=== PATIENT | male | born 1965 | race American Indian/Alaskan Native ===

== ENCOUNTER 2018-07-16 12:45 | Emergency (ER) | payer SELFPAY ==
[2018-07-16 13:11] VITALS: BP 180/102
--- NOTE | 2018-07-16 16:07 | XRay Report ---
FINAL REPORT EXAM: XR ANKLE 3+V RT HISTORY: right ankle pain and injury TECHNIQUE: Three views right ankle Comparison: None FINDINGS: Mild diffuse osteopenia. Significant soft tissue swelling projects over the lateral malleolus. Mortise is preserved. There is an ill-defined lucency projecting over the medial talar dome on the AP image. There is an ill-defined lucency projecting over the posterior malleolus. There is an old well corticated 3 millimeter bone chip along the medial inferior aspect of the lateral malleolus. Ankle joint effusion is present. IMPRESSION: Findings suspicious for posterior malleolar fracture and medial talar dome/plafond injury. Mechanism injury is also suggestive of a nondisplaced lateral malleolus fracture. Recommend CT for further characterization.
== END 2018-07-16 18:10 ==
LOC: ED 12:45
DX: M25.571 Pain in right ankle and joints of right foot (principal); R03.0 Elevated blood-pressure reading, without diagnosis of hypertension; Z53.21 Procedure and treatment not carried out due to patient leaving prior to being seen by health care provider

== ENCOUNTER 2018-12-12 10:08 | Emergency (ER) | payer SELFPAY ==
[2018-12-12 12:40] LABS: Hematocrit 41.7 % (35.5-45.6); Hemoglobin 13.9 gm/dl (11.8-15.2); Mean Corpuscular HGB Conc 33 % (32-34); Mean Corpuscular Volume 93 fl (84-94); Platelet Count 225 K/mm3 (140-440); Red Blood Count 4.51 M/mm3 (3.65-5.03); Red Cell Distribution Width 15.6 % (13.2-15.2)
[2018-12-12 12:53] LABS: Alanine Aminotransferase 24 units/L (7-56); Albumin 4.2 g/dL (3.9-5); BUN/Creatinine Ratio 13; Blood Urea Nitrogen 15 mg/dL (9-20); Calcium 8.9 mg/dL (8.4-10.2); Hemolysis Index 8
--- NOTE | 2018-12-12 12:57 | Emergency Department Report ---
ED General Adult HPI - General Chief complaint: High BP Stated complaint: HIGH BP Time Seen by Provider: 12/12/18 12:14 Source: patient Mode of arrival: Ambulatory Limitations: No Limitations - History of Present Illness Initial comments: This is a 53-year-old -F[place] male presents with dizziness and headache that has increased today. Patient states he has been off blood pressure medication for the past 2 months. He recently moved back to [place] from [place] 45 days ago and has not been able to get Medicaid switched here. He is requesting refills of blood pressure medication. He denies chest pain, shortness of breath, visual changes, numbness or tingling, nausea or vomiting, or radiating pain. Onset/Timin -: month(s) Radiation: non-radiation Improves with: none Worsens with: none Associated Symptoms: headaches. denies: confusion, chest pain, cough, diaphoresis, fever/chills, loss of appetite, malaise, nausea/vomiting, rash, seizure, shortness of breath, syncope, weakness Treatments Prior to Arrival: none - Related Data Previous Rx's Medication Instructions Recorded Last Taken Type Aspirin EC [Aspirin Enteric Coated 81 mg PO QDAY #30 tablet. 10/22/18 Unknown Rx TAB] Carvedilol [Coreg] 6.25 mg PO BID #60 tablet 10/22/18 Unknown Rx ISOSORBIDE MONOnitrate [Imdur ER] 30 mg PO DAILY #30 tab.er.24h 12/04/18 Unknown Rx Lisinopril [Zestril TAB] 20 mg PO QDAY #30 tablet 12/04/18 Unknown Rx Carvedilol [Coreg] 6.25 mg PO BID #60 tablet 12/12/18 Unknown Rx ISOSORBIDE MONOnitrate [Imdur ER] 30 mg PO QDAY #30 tablet 12/12/18 Unknown Rx Lisinopril [Zestril TAB] 20 mg PO QDAY #30 tablet 12/12/18 Unknown Rx Allergies Allergy/AdvReac Type Severity Reaction Status Date / Time No Known Allergies Allergy Verified 12/04/18 09:47 ED Review of Systems ROS: Stated complaint: HIGH BP Other details as noted in HPI Constitutional: denies: chills, fever Respiratory: denies: cough, shortness of breath, wheezing Cardiovascular: denies: chest pain, palpitations Gastrointestinal: denies: abdominal pain, nausea, diarrhea Neurological: headache, vertigo. denies: weakness, paresthesias Psychiatric: denies: anxiety, depression ED Past Medical Hx - Past Medical History Hx Hypertension: Yes Hx CVA: Yes Hx Heart Attack/AMI: No Hx Congestive Heart Failure: No Hx Diabetes: No Hx Deep Vein Thrombosis: No Hx Asthma: No Hx COPD: No Additional medical history: right ankle fx. - Surgical History Hx Coronary Stent: No Hx Pacemaker: No Hx Internal Defibrillator: No - Social History Smoking Status: Never Smoker Substance Use Type: None - Medications Home Medications: Home Medications Medication Instructions Recorded Confirmed Last Taken Type Aspirin EC [Aspirin Enteric Coated 81 mg PO QDAY #30 tablet.dr 10/22/18 Unknown Rx TAB] Carvedilol [Coreg] 6.25 mg PO BID #60 tablet 10/22/18 Unknown Rx ISOSORBIDE MONOnitrate [Imdur ER] 30 mg PO DAILY #30 tab.er.24h 12/04/18 Unknown Rx Lisinopril [Zestril TAB] 20 mg PO QDAY #30 tablet 12/04/18 Unknown Rx Carvedilol [Coreg] 6.25 mg PO BID #60 tablet 12/12/18 Unknown Rx ISOSORBIDE MONOnitrate [Imdur ER] 30 mg PO QDAY #30 tablet 12/12/18 Unknown Rx Lisinopril [Zestril TAB] 20 mg PO QDAY #30 tablet 12/12/18 Unknown Rx ED Physical Exam - General Limitations: No Limitations General appearance: alert, in no apparent distress - ENT ENT exam: Present: mucous membranes moist - Respiratory Respiratory exam: Present: normal lung sounds bilaterally. Absent: respiratory distress - Cardiovascular Cardiovascular Exam: Present: regular rate, normal rhythm. Absent: systolic murmur, diastolic murmur, rubs, gallop - GI/Abdominal GI/Abdominal exam: Present: soft, normal bowel sounds - Neurological Exam Neurological exam: Present: alert, oriented X3, normal gait - Psychiatric Psychiatric exam: Present: normal affect, normal mood - Skin Skin exam: Present: warm, dry, intact, normal color. Absent: rash ED Course Vital Signs 12/12/18 12/12/18 12/12/18 10:12 14:10 14:11 Temperature 98.5 F Pulse Rate 96 H 84 84 Respiratory 18 Rate Blood Pressure 192/114 170/104 170/104 O2 Sat by Pulse 98 Oximetry ED Medical Decision Making - Lab Data Result diagrams: 12/12/18 12:27 12/12/18 12:27 Lab Results 12/12/18 12/12/18 Range/Units 12:27 12:27 WBC 7.1 (4.5-11.0) K/mm3 RBC 4.51 (3.65-5.03) M/mm3 Hgb 13.9 (11.8-15.2) gm/dl Hct 41.7 (35.5-45.6) % MCV 93 (84-94) fl MCH 31 (28-32) pg MCHC 33 (32-34) % RDW 15.6 H (13.2-15.2) % Plt Count 225 (140-440) K/mm3 Sodium 144 (137-145) mmol/L Potassium 3.2 L (3.6-5.0) mmol/L Chloride 104.7 (98-107) mmol/L Carbon Dioxide 25 (22-30) mmol/L Anion Gap 18 mmol/L BUN 15 (9-20) mg/dL Creatinine 1.2 (0.8-1.5) mg/dL Estimated GFR > 60 ml/min BUN/Creatinine Ratio 13 % Glucose 80 (75-100) mg/dL Calcium 8.9 (8.4-10.2) mg/dL Total Bilirubin 0.20 (0.1-1.2) mg/dL AST 38 (5-40) units/L ALT 24 (7-56) units/L Alkaline Phosphatase 64 (35-129) units/L Total Protein 7.5 (6.3-8.2) g/dL Albumin 4.2 (3.9-5) g/dL Albumin/Globulin Ratio 1.3 % - EKG Data -: No EKG Interpreted by Me (EKG interpreted by the attending) EKG shows normal: sinus rhythm Rate: normal - Medical Decision Making This is a 53 y.o. male that presents with dizziness and headache. History of HTN. Patient off blood pressure medication for 2 months. Patient is stable and was examined by me. Obtained labs and EKG. EKG interpreted by attending, sinus rhythm. Hypokalemia, given klor-con 40 mEq once while in ER. Given lisinopril 20 mg po, carvedilol 6.25 mg po, and isosorbide 30 mg po once in ER. Blood pressure trending down and reports feeling better. Start lisinopril 20 mg po daily, carvedilol 6.25 mg po bid, and isosorbide 30 mg po daily. Discussed plan with patient and agreed to plan. No further questions noted by the patient. Discharged home in stable condition. Follow up with PCP in 1 week. Critical care attestation.: If time is entered above; I have spent that time in minutes in the direct care of this critically ill patient, excluding procedure time. ED Disposition Clinical Impression: Dizziness, Hypokalemia Hypertension Qualifiers: Hypertension type: essential hypertension Qualified Code(s): I10 - Essential (primary) hypertension Headache Qualifiers: Headache type: other headache syndrome Qualified Code(s): G44.89 - Other headache syndrome Disposition: TO HOME OR SELFCARE Is pt being admited?: No Does the pt Need Aspirin: No Condition: Stable Instructions: Hypertension (ED) Additional Instructions: Encourage stop smoking to reduce cardiovascular risk. Moderate caffeine consumption is acceptable. Begin and maintain aerobic exercise, with a goal of at least 30 minutes of moderate intensity, dynamic aerobic exercise (walking, jogging, cycling, or swimming) 5 days per week to total 150 minutes as tolerated or recommended by a physician. Take medication daily as prescribed. Follow up with Primary Care Provider in 1 week. Prescriptions: Carvedilol [Coreg] 6.25 mg PO BID #60 tablet ISOSORBIDE MONOnitrate [Imdur ER] 30 mg PO QDAY #30 tablet Lisinopril [Zestril TAB] 20 mg PO QDAY #30 tablet Referrals: [facility] [Outside] - 3-5 Days [facility] [Outside] - 3-5 Days [facility] [Outside] - 3-5 Days Time of Disposition: 15:31
[2018-12-12] MEDS ORDERED: ZESTRIL PO ONE (12:58)
[2018-12-12] MEDS ORDERED: COREG PO ONE (12:58)
[2018-12-12] MEDS ORDERED: IMDUR PO SCH (13:00)
[2018-12-12] MEDS ORDERED: K-DUR PO ONE (14:00)
[2018-12-12 14:11] VITALS: BP 170/104
== END 2018-12-12 16:30 | disposition home or self-care (01) ==
LOC: ED 10:08
DX: E87.6 Hypokalemia (principal); I10 Essential (primary) hypertension; G44.89 Other headache syndrome; R76.0 Raised antibody titer
CPT/HCPCS: 36415; 80053; 85027; 93005; 93010; 99283

== ENCOUNTER 2018-12-25 05:30 | Emergency (ER) | payer SELFPAY ==
[2018-12-25 06:46] LABS: Basophils % (Auto) 0.5 % (0.0-1.8); Eosinophils # (Auto) 0.1 K/mm3 (0.0-0.4); Eosinophils % (Auto) 1.8 % (0.0-4.3); Hematocrit 38.2 % (35.5-45.6); Hemoglobin 12.7 gm/dl (11.8-15.2); Lymphocytes # (Auto) 1.6 K/mm3 (1.2-5.4); Lymphocytes % (Auto) 20.4 % (13.4-35.0); Mean Corpuscular HGB Conc 33 % (32-34); Mean Corpuscular Volume 93 fl (84-94); Monocytes # (Auto) 0.6 K/mm3 (0.0-0.8); Monocytes % (Auto) 7.7 % (0.0-7.3); Platelet Count 243 K/mm3 (140-440); Red Blood Count 4.09 M/mm3 (3.65-5.03); Red Cell Distribution Width 15.6 % (13.2-15.2)
[2018-12-25] MEDS ORDERED: TYLENOL PO ONE (06:46)
[2018-12-25] MEDS ORDERED: ANTIVERT PO ONE (06:46)
--- NOTE | 2018-12-25 06:47 | Emergency Department Report ---
ED General Adult HPI - General Chief complaint: Dizziness Stated complaint: POSS HIGH BP Time Seen by Provider: 12/25/18 06:05 Source: patient, RN notes reviewed, old records reviewed Mode of arrival: Ambulatory Limitations: No Limitations - History of Present Illness Initial comments: Is is a 53-year-old gentleman whom I have evaluated in the past. Patient was admitted to the hospital in September for chest pain, and had an extensive and noninvasive cardiac workup, which demonstrated angiographically normal coronary arteries. He also had an echocardiogram which demonstrated an ejection fraction of 45-50%, with no evidence of patent foramen ovale. He also had a bilateral carotid duplex performed, which was unremarkable. He also has a history of hypertension, inability to take outpatient medications, and reported chronic right ankle pain, right ankle fracture, diagnosed at this hospital in June 2018. The patient was seen at this hospital on December 04 by one of my colleagues, with a complaint of dizziness. The patient had extensive and appropriate workup, and was subsequently discharged to follow-up. Today, the patient presents to the emergency room with the complaint of dizziness. He reports that while in the bathroom, today, he felt dizzy and "unsteady." He reported that he was walking into the [place]. On further elaboration, he indicates that this has been going on for 2 weeks. It is painless, and associated with his chronic right ankle pain, which she reports has been. His ability to walk. He also complains of chronic occipital headache. Of note, the patient had an extensive evaluation yesterday, and may no comp laints of any of the symptoms. The patient's only complaint yesterday was chronic chest pain, chronic headache, and inability to fill his blood pressure medications. The patient had his medications administered, and he was instructed to download a local pharmacy application which would facilitate acquisition of outpatient the patient was observed in the emergency room for hours without clinical decompensation, and walked out without distress. -: Gradual, week(s) Location: head Radiation: non-radiation Quality: aching Consistency: intermittent Improves with: none Worsens with: none Associated Symptoms: headaches. denies: confusion, chest pain, cough, diaphoresis, fever/chills, loss of appetite, malaise, nausea/vomiting, rash, seizure, shortness of breath, syncope, weakness - Related Data Previous Rx's Medication Instructions Recorded Last Taken Type Aspirin EC [Aspirin Enteric Coated 81 mg PO QDAY #30 tablet. 12/22/18 Unknown Rx TAB] Carvedilol [Coreg] 6.25 mg PO BID #60 tablet 12/22/18 Unknown Rx ISOSORBIDE MONOnitrate [Imdur ER] 30 mg PO QDAY #30 tablet 12/22/18 Unknown Rx Lisinopril [Zestril TAB] 20 mg PO QDAY #30 tablet 12/22/18 Unknown Rx Potassium Chloride [K-Dur] 20 meq PO QDAY #3 tablet 12/23/18 Unknown Rx Allergies Allergy/AdvReac Type Severity Reaction Status Date / Time No Known Allergies Allergy Verified 12/22/18 09:25 ED Review of Systems ROS: Stated complaint: POSS HIGH BP Other details as noted in HPI Constitutional: denies: fever, malaise ENT: denies: dental pain Respiratory: denies: cough Cardiovascular: denies: chest pain Gastrointestinal: denies: abdominal pain Genitourinary: denies: dysuria Musculoskeletal: arthralgia, myalgia Neurological: weakness. denies: numbness, paresthesias, confusion ED Past Medical Hx - Past Medical History Hx Hypertension: Yes Hx CVA: Yes Hx Heart Attack/AMI: No Hx Congestive Heart Failure: No Hx Diabetes: No Hx Deep Vein Thrombosis: No Hx Asthma: No Hx COPD: No Additional medical history: right ankle fx. - Surgical History Past Surgical History?: No Hx Coronary Stent: No Hx Pacemaker: No Hx Internal Defibrillator: No - Social History Smoking Status: Never Smoker Substance Use Type: None - Medications Home Medications: Home Medications Medication Instructions Recorded Confirmed Last Taken Type Aspirin EC [Aspirin Enteric Coated 81 mg PO QDAY #30 tablet. 12/22/18 12/25/18 Unknown Rx TAB] Carvedilol [Coreg] 6.25 mg PO BID #60 tablet 12/22/18 12/25/18 Unknown Rx ISOSORBIDE MONOnitrate [Imdur ER] 30 mg PO QDAY #30 tablet 12/22/18 12/25/18 Unknown Rx Lisinopril [Zestril TAB] 20 mg PO QDAY #30 tablet 12/22/18 12/25/18 Unknown Rx Potassium Chloride [K-Dur] 20 meq PO QDAY #3 tablet 12/23/18 12/25/18 Unknown Rx ED Physical Exam - General Limitations: No Limitations General appearance: alert, in no apparent distress - Head Head exam: Present: atraumatic, normocephalic - Eye Eye exam: Present: normal appearance, PERRL, EOMI, other (visual acuity intact to finger counting, color perception, reading at a close distance). Absent: nystagmus - ENT ENT exam: Present: normal exam, normal orophraynx, mucous membranes moist, normal external ear exam, other (there is no mastoid tenderness) - Neck Neck exam: Present: normal inspection, full ROM. Absent: tenderness, meningismus - Respiratory Respiratory exam: Present: normal lung sounds bilaterally. Absent: respiratory distress - Cardiovascular Cardiovascular Exam: Present: regular rate, normal rhythm, normal heart sounds. Absent: bradycardia, tachycardia, irregular rhythm, systolic murmur, diastolic murmur, rubs, gallop - GI/Abdominal GI/Abdominal exam: Present: soft. Absent: distended, tenderness, guarding, rebound, rigid, pulsatile mass - Rectal Rectal exam: Present: deferred - Extremities Exam Extremities exam: Present: normal inspection, full ROM (ankle is nontender, with no redness, pus or streaking.), other (2+ pulses noted in the bilateral upper, lower extremities. Compartments soft. No long bony tenderness. The pelvis is stable.). Absent: pedal edema, joint swelling, calf tenderness - Back Exam Back exam: Present: normal inspection, full ROM. Absent: tenderness, CVA tenderness (R), paraspinal tenderness, vertebral tenderness - Neurological Exam Neurological exam: Present: alert, oriented X3, CN II-XII intact, normal gait (patient walks with a slight limp), other (Extraocular movements intact. Tongue midline. No facial droop. Facial sensation intact to light touch in the V1, V2, V3 distribution bilaterally. 5 and 5 strength in 4 extremities.. Sensation is intact to light touch in 4 extremities.). Absent: motor sensory deficit - Psychiatric Psychiatric exam: Present: normal affect, normal mood - Skin Skin exam: Present: warm, dry, intact, normal color. Absent: rash ED Course Vital Signs 12/25/18 12/25/18 12/25/18 05:34 05:42 06:30 Temperature 98.4 F 98.4 F Pulse Rate 83 86 69 Respiratory 18 16 15 Rate Blood Pressure 172/112 172/112 125/97 O2 Sat by Pulse 99 100 98 Oximetry 12/25/18 12/25/18 12/25/18 06:39 07:45 08:00 Temperature Pulse Rate 72 Respiratory 20 20 Rate Blood Pressure 125/97 153/95 O2 Sat by Pulse 98 98 99 Oximetry - Reevaluation(s) Reevaluation #1: 12/25/18 07:14 Differential diagnosis, including but not limited to: Chronic right-sided ankle arthritis, intracranial hemorrhage, secondary gain Assessment and plan: 53-year-old gentleman with inconsistent history, reported history of dizziness, which initially was reported as today, and he reports his present for 2 weeks, and as per review of old medical records, has been present intermittently since December 04. Patient has had multiple evaluations at this hospital by myself and by other providers. He walks with a slight limp secondary to reported chronic right ankle pain, and has a known and documented history of right-sided ankle fracture, which was found at this hospital, and June 2018. He has a [place] Coma Scale of 15, with an NIH score of 0 currently. I highly doubt acute intracranial lesion or process, and given his recent extensive cardiac workup, unchanged neurologic examination, and inconsistent history, I think a stroke or transient ischemic attack is very unlikely. The patient does exhibit decision-making capacity, and appears to have significant psychosocial stressors, and may have a component of secondary gain. We will continue his current outpatient medications, I will put him in for case management consult to assist with outpatient follow-up, outpatient physical therapy, and outpatient medication acquisition. Reevaluation #2: 12/25/18 08:00 Vital signs improved. Objective laboratory testing unremarkable. X-ray of the right ankle negative for acute disease, as expected. Noncontrast CT scan of the brain is negative for acute disease. Patient will be discharged. He does not appear to have an emergent medical condition which requires further evaluation or hospitalization at this time. He is medically suitable to follow up as an outpatient with the primary care doctor. Case management consult has been ordered to assist with his outpatient medical needs. They can follow him up as an outpatient. Reevaluation #3: 12/25/18 08:36 Creatinine kinase of 409 reviewed and appreciated, this does not meet the definition criteria of rhabdomyolysis, and will decrease with oral hydration. ED Medical Decision Making - Lab Data Result diagrams: 12/25/18 05:58 12/25/18 05:58 Vital Signs 12/25/18 12/25/18 12/25/18 05:34 05:42 06:30 Temperature 98.4 F 98.4 F Pulse Rate 83 86 69 Respiratory 18 16 15 Rate Blood Pressure 172/112 172/112 125/97 O2 Sat by Pulse 99 100 98 Oximetry 12/25/18 06:39 Temperature Pulse Rate Respiratory 20 Rate Blood Pressure O2 Sat by Pulse 98 Oximetry Lab Results 12/25/18 12/25/18 Range/Units 05:58 05:58 WBC 7.8 (4.5-11.0) K/mm3 RBC 4.09 (3.65-5.03) M/mm3 Hgb 12.7 (11.8-15.2) gm/dl Hct 38.2 (35.5-45.6) % MCV 93 (84-94) fl MCH 31 (28-32) pg MCHC 33 (32-34) % RDW 15.6 H (13.2-15.2) % Plt Count 243 (140-440) K/mm3 Lymph % (Auto) 20.4 (13.4-35.0) % [place] % (Auto) 7.7 H (0.0-7.3) % Eos % (Auto) 1.8 (0.0-4.3) % Baso % (Auto) 0.5 (0.0-1.8) % Lymph # 1.6 (1.2-5.4) K/mm3 [place] # 0.6 (0.0-0.8) K/mm3 Eos # 0.1 (0.0-0.4) K/mm3 Baso # 0.0 (0.0-0.1) K/mm3 Seg Neutrophils % 69.6 (40.0-70.0) % Seg Neutrophils # 5.4 (1.8-7.7) K/mm3 Sodium 143 (137-145) mmol/L Potassium 3.6 (3.6-5.0) mmol/L Chloride 105.3 (98-107) mmol/L Carbon Dioxide 26 (22-30) mmol/L Anion Gap 15 mmol/L BUN 19 (9-20) mg/dL Creatinine 1.1 (0.8-1.5) mg/dL Estimated GFR > 60 ml/min BUN/Creatinine Ratio 17 % Glucose 106 H (75-100) mg/dL Calcium 9.2 (8.4-10.2) mg/dL - EKG Data -: EKG Interpreted by Me EKG shows normal: sinus rhythm Rate: normal - EKG Data 12/25/18 07:17 Sinus, 71 bpm, normal axis, QTC prolonged, left ventricular hypertrophy, T-wave inversions 1, aVL, V3, V4, V5 and V6. This is an abnormal EKG, appears to be unchanged from prior, and it is not consistent with an ST elevation myocardial infarction. Critical care attestation.: If time is entered above; I have spent that time in minutes in the direct care of this critically ill patient, excluding procedure time. ED Disposition Clinical Impression: Headache, Non compliance w medication regimen Disposition: TO HOME OR SELFCARE Is pt being admited?: No Does the pt Need Aspirin: No Condition: Stable Additional Instructions: Continue outpatient medications. Follow up with her primary care doctor within the next month. A case management consult has been requested to assist with following up as an outpatient, and to assist with the acquisition of outpatient prescriptions. Please remembered to reference the affordable prescription application, which was described to the patient on his previous visit. As always, please return to the ER right away with new, worsening or different symptoms. Referrals: ADE LYN MD [Primary Care Provider] - 3-5 Days
[2018-12-25 06:59] LABS: BUN/Creatinine Ratio 17; Blood Urea Nitrogen 19 mg/dL (9-20); Calcium 9.2 mg/dL (8.4-10.2); Hemolysis Index 5
--- NOTE | 2018-12-25 07:42 | Cat Scan Report ---
FINAL REPORT PROCEDURE: CT HEAD/BRAIN WO CON TECHNIQUE: Computerized tomography of the head was performed without contrast material. HISTORY: dizzy COMPARISON: 12/04/2018 FINDINGS: Skull and scalp: Normal. Paranasal sinuses: Normal. Ventricles and subarachnoid spaces: There is mild central and cortical atrophy. There is no hydroceph alus or asymmetry.. Cerebrum: No evidence of hemorrhage, acute infarction or mass. There are chronic deep white matter is chemic changes. Cerebellum and brainstem: No evidence of hemorrhage, acute infarction or mass. Vasculature: Normal. Comments: None. IMPRESSION: The there is no acute intracranial abnormality.
--- NOTE | 2018-12-25 07:53 | XRay Report ---
FINAL REPORT PROCEDURE: XR ANKLE 3+V RT TECHNIQUE: RIGHT ankle radiographs, AP, lateral, and oblique views. CPT 38116 HISTORY: ankle pain hx of fx COMPARISON: No prior studies are available for comparison. FINDINGS: Fracture (s) and/or Dislocation(s): There is no acute fracture.. Alignment: Normal. 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 Soft tissues: Normal. Bone mineralization: Normal. Foreign bodies: None. Calcaneal spurring: None. IMPRESSION: There is no acute fracture.. 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 Soft tissues are unremarkable. .
[2018-12-25 08:14] VITALS: BP 153/95
[2018-12-25] MEDS ORDERED: K-DUR PO SCH (10:00)
[2018-12-25] MEDS ORDERED: COREG PO SCH (10:00)
[2018-12-25] MEDS ORDERED: IMDUR PO SCH (10:00)
[2018-12-25] MEDS ORDERED: ZESTRIL PO SCH (10:00)
== END 2018-12-25 08:40 | disposition home or self-care (01) ==
LOC: ED 05:30
DX: R51 Headache (principal); M25.571 Pain in right ankle and joints of right foot; I10 Essential (primary) hypertension; Z79.82 Long term (current) use of aspirin
CPT/HCPCS: 36415; 70450; 80048; 82550; 83735; 85025; 93005; 93010; 99284